=== PATIENT | female | born 1950 | race Caucasian/White ===

== ENCOUNTER 2024-07-23 03:02 | Outpatient (CLI) | payer MEDICARE, SELFPAY ==
--- NOTE | 2024-07-23 | DI.CT_ITS ---
Exam(s) CT CHEST W EXAM: CT CHEST W CLINICAL HISTORY: RECTAL CA,C20,STAGING EXAM. TECHNIQUE: Multi planar reconstructions were performed. CONTRAST MATERIAL: Omnipaque 350; 75 cc COMPARISON: No prior exams were available for comparison FINDINGS: CHEST: LUNGS: There are few small benign calcified granulomas in the right lung as well as a few small calci fied lymph nodes in the right hilum. There are no ominous lung nodules to suggest metastatic disease . There are mild benign-appearing subpleural markings in the left lower lobe posterior basal segment , without confluent infiltrates and no evidence of pleural effusions. There are no focal findings in the trachea and mainstem bronchi. There is no bronchiectasis. MEDIASTINUM: There is no hilar nor mediastinal adenopathy. CARDIAC: Heart size is normal. There is no pericardial effusion.Caliber of the thoracic aorta is wit hin normal limits. VISUALIZED UPPER ABDOMEN:There are no significant adrenal masses. Spleen size normal. Gallbladder s urgically absent. Subtle area of hypodensity in the right hepatic lobe is noted measuring 1.2 x 1.0 cm. This does not have the appearance of a simple cyst. May represent small hemangioma but requires further imaging to rule out metastatic disease given the history here. OSSEOUS: No significant osseous lesions.No fractures.. IMPRESSION: 1. No significant lung nodules. No pleural effusions nor intrathoracic adenopathy. 2. Incidentally noted is a 12 x 10 mm hypodensity in the liver which requires further investigation g iven the history here. There is a possibly that this may represent a benign hemangioma as opposed to metastatic disease. Can be further investigated with contrast infused MRI of the liver using lázaro iopa protocol sequences for added specificity. RADIATION DOSE DELIVERED: 158.01mGy.cm Total DLP DATA REPOSITORY: All CT scans at this facility are submitted to the National Radiology Data Registry (NRDR) Dose Index Registry (DIR) with the [employer] (A[employer]). RADIATION OPTIMIZATION: All CT scans at this facility use at least one of these dose optimization te chniques: automated exposure control; mA and/or kV adjustment per patient size (includes targeted exa ms where dose is matched to clinical indication); or iterative reconstruction.
[2024-07-23] MEDS: Omnipaque 350 MG/ML 100 ML BTL 70 ML IJ (14:26)
[2024-07-23] MEDS: Normal Saline - Diluent 50 ML VIAL IJ (14:27)
== END 2024-07-23 03:22 ==
LOC: DI 03:02
PROVIDERS: Visit Provider Internal Medicine Medical Oncology
DX: C20 Malignant neoplasm of rectum (principal)
CPT/HCPCS: 71260; J3490

== ENCOUNTER 2024-08-06 04:48 | Outpatient (CLI) | payer MEDICARE, SELFPAY ==
[2024-08-06 12:41] LABS: Abs Immature Grans 0.04 10^3/uL (0.0-0.06); Absolute Basophil Count 0.03 10^3/uL (0.0-0.2); Absolute Eosinophil Count 0.08 10^3/uL (0.0-0.7); Absolute Lymphocyte Count 1.18 10^3/uL (1.2-3.4); Absolute Monocyte Count 0.67 10^3/uL (0.1-0.8); Absolute Neutrophil Count 8.59 10^3/uL (1.2-6.7); Basophils % 0.3 %; Eosinophils % 0.8 %; HCT 35.4 % (36.0-46.0); HGB 11.1 g/dL (11.2-15.7); Immature Grans % 0.4 %; Lymphocytes % 11.1 %; MCH 29.1 pg (27.0-33.0); MCHC 31.4 % (32.0-36.0); MCV 93 fL (80-95); MPV 8.6 fL (8.0-11.0); Monocytes % 6.3 %; Neutrophils % 81.1 %; Platelet Count 239 10^3/uL (130-400); RBC 3.82 10^6/uL (3.93-5.22); RDW 12.9 % (11.7-14.6); RDW-SD 44.2 fL; WBC 10.59 10^3/uL (4.4-10.8)
[2024-08-06 12:55] LABS: ALT 18 U/L (14-59); AST 17 U/L (15-37); Albumin 3.2 g/dL (3.4-5.0); Alkaline Phosphatase 131 U/L (46-116); Anion Gap 7.4 mmol/L (3-11); BUN 8 mg/dL (7-18); Bilirubin, Total 0.78 mg/dL (0.2-1.0); CO2 27.6 mmol/L (21.0-32.0); CREATININE 0.7 mg/dL (0.55-1.02); Calcium 9.1 mg/dL (8.5-10.1); Chloride 107 mmol/L (98-107); Glucose 102 mg/dL (74-106); Potassium 3.8 mmol/L (3.5-5.1); Sodium 142 mmol/L (136-145); Total Protein 7.1 g/dL (6.4-8.2)
== END 2024-08-06 04:49 | disposition home or self-care (01) ==
LOC: LBO 04:48
PROVIDERS: Visit Provider Nurse Practitioner Family
DX: C20 Malignant neoplasm of rectum (principal)
CPT/HCPCS: 36415; 80053; 85025

== ENCOUNTER 2024-08-13 02:21 | Outpatient (CLI) | payer MEDICARE, SELFPAY ==
[2024-08-13 10:01] LABS: Abs Immature Grans 0.05 10^3/uL (0.0-0.06); Absolute Basophil Count 0.03 10^3/uL (0.0-0.2); Absolute Eosinophil Count 0.19 10^3/uL (0.0-0.7); Absolute Lymphocyte Count 0.69 10^3/uL (1.2-3.4); Absolute Monocyte Count 0.36 10^3/uL (0.1-0.8); Absolute Neutrophil Count 4.87 10^3/uL (1.2-6.7); Basophils % 0.5 %; Eosinophils % 3.1 %; HCT 32.8 % (36.0-46.0); HGB 10.6 g/dL (11.2-15.7); Immature Grans % 0.8 %; Lymphocytes % 11.1 %; MCH 29.7 pg (27.0-33.0); MCHC 32.3 % (32.0-36.0); MCV 92 fL (80-95); MPV 8.5 fL (8.0-11.0); Monocytes % 5.8 %; Neutrophils % 78.7 %; Platelet Count 241 10^3/uL (130-400); RBC 3.57 10^6/uL (3.93-5.22); RDW 13.1 % (11.7-14.6); RDW-SD 43.6 fL; WBC 6.19 10^3/uL (4.4-10.8)
[2024-08-13 10:21] LABS: ALT 21 U/L (14-59); AST 17 U/L (15-37); Albumin 3.3 g/dL (3.4-5.0); Alkaline Phosphatase 125 U/L (46-116); BUN 22 mg/dL (7-18); Bilirubin, Total 0.73 mg/dL (0.2-1.0); CREATININE 1.2 mg/dL (0.55-1.02); Chloride 107 mmol/L (98-107); Glucose 96 mg/dL (74-106); Potassium 4.3 mmol/L (3.5-5.1); Sodium 142 mmol/L (136-145); Total Protein 6.7 g/dL (6.4-8.2)
== END 2024-08-13 02:22 | disposition home or self-care (01) ==
PROVIDERS: Visit Provider Nurse Practitioner Family
DX: C20 Malignant neoplasm of rectum (principal)
CPT/HCPCS: 36415; 80053; 85025

== ENCOUNTER 2024-08-20 03:23 | Outpatient (CLI) | payer MEDICARE, SELFPAY ==
[2024-08-20 14:46] LABS: Abs Immature Grans 0.03 10^3/uL (0.0-0.06); Absolute Basophil Count 0.01 10^3/uL (0.0-0.2); Absolute Eosinophil Count 0.54 10^3/uL (0.0-0.7); Absolute Lymphocyte Count 0.64 10^3/uL (1.2-3.4); Absolute Monocyte Count 0.37 10^3/uL (0.1-0.8); Absolute Neutrophil Count 4.93 10^3/uL (1.2-6.7); Basophils % 0.2 %; Eosinophils % 8.3 %; HCT 31.6 % (36.0-46.0); HGB 10.4 g/dL (11.2-15.7); Immature Grans % 0.5 %; Lymphocytes % 9.8 %; MCH 30.4 pg (27.0-33.0); MCHC 32.9 % (32.0-36.0); MCV 92 fL (80-95); Monocytes % 5.7 %; Neutrophils % 75.5 %; Platelet Count 207 10^3/uL (130-400); RBC 3.42 10^6/uL (3.93-5.22); RDW 13.6 % (11.7-14.6); RDW-SD 43.6 fL; WBC 6.52 10^3/uL (4.4-10.8)
[2024-08-20 14:51] LABS: ALT 23 U/L (14-59); AST 19 U/L (15-37); Albumin 3.3 g/dL (3.4-5.0); Alkaline Phosphatase 134 U/L (46-116); Anion Gap 6.7 mmol/L (3-11); BUN 16 mg/dL (7-18); Bilirubin, Total 0.65 mg/dL (0.2-1.0); CO2 29.3 mmol/L (21.0-32.0); CREATININE 0.6 mg/dL (0.55-1.02); Calcium 9.4 mg/dL (8.5-10.1); Chloride 106 mmol/L (98-107); Estimated GFR 94.13 (mL/min/1.73m2); Glucose 105 mg/dL (74-106); Potassium 3.9 mmol/L (3.5-5.1); Sodium 142 mmol/L (136-145); Total Protein 6.8 g/dL (6.4-8.2)
== END 2024-08-20 03:24 | disposition home or self-care (01) ==
LOC: LBO 03:23
PROVIDERS: Visit Provider Nurse Practitioner Family
DX: C20 Malignant neoplasm of rectum (principal)
CPT/HCPCS: 36415; 80053; 85025

== ENCOUNTER 2024-08-27 03:32 | Outpatient (CLI) | payer MEDICARE, SELFPAY ==
[2024-08-27 10:21] LABS: Bilirubin Negative (Negative); Blood Trace-lysed (Negative); Clarity Clear (Clear); Glucose Negative (Negative); Ketones Negative (Negative); Leukocyte Esterase Moderate (Negative); Nitrite Negative (Negative); Specific Gravity <= 1.005 (1.005-1.025); Urobilinogen 0.2 mg/dL (Up to 0.2); pH 5.5 (5-8)
[2024-08-27 10:28] LABS: Bacteria Negative HPF (Negative); C & S Indicated? No; Casts Negative LPF (Negative); Crystals Negative HPF (Negative); Epithelial Cells Rare HPF (Negative); Mucus Negative (Negative); RBC 0-2 HPF (0-2)
[2024-08-27 10:31] LABS: Iron 109 ug/dL (50-170); Total Iron Binding Capacity 305 ug/dL (250-450); Transferrin Sat 36 % (15-50)
[2024-08-27 10:42] LABS: Ferritin 291 ng/mL (8-252)
[2024-08-28 12:34] LABS: ALT 26 U/L (14-59); AST 23 U/L (15-37); Albumin 3.4 g/dL (3.4-5.0); Alkaline Phosphatase 135 U/L (46-116); BUN 18 mg/dL (7-18); CO2 25.4 mmol/L (21.0-32.0); CREATININE 0.6 mg/dL (0.55-1.02); Chloride 107 mmol/L (98-107); Estimated GFR 94.13 (mL/min/1.73m2); Glucose 102 mg/dL (74-106); Potassium 4.1 mmol/L (3.5-5.1); Sodium 142 mmol/L (136-145); Total Protein 6.4 g/dL (6.4-8.2)
[2024-08-29 09:26] LABS: Misc Referral (UVM) See Comments
== END 2024-08-27 03:33 | disposition home or self-care (01) ==
PROVIDERS: Nurse Practitioner Family; Visit Provider Nurse Practitioner Adult Health
DX: C20 Malignant neoplasm of rectum (principal)
CPT/HCPCS: 36415; 82947; 84520; 81003; 81015; 82040; 82247; 82310; 82374; 82435; 82565; 82728; 83540; 83550; 84075; 84132; 84155; 84295; 84450; 84460

== ENCOUNTER 2024-08-29 00:50 | Outpatient (CLI) | payer MEDICARE, SELFPAY ==
[2024-08-29 09:48] LABS: Abs Immature Grans 0.03 10^3/uL (0.0-0.06); Absolute Basophil Count 0.02 10^3/uL (0.0-0.2); Absolute Eosinophil Count 0.72 10^3/uL (0.0-0.7); Absolute Lymphocyte Count 0.35 10^3/uL (1.2-3.4); Absolute Monocyte Count 0.49 10^3/uL (0.1-0.8); Basophils % 0.4 %; Eosinophils % 12.8 %; HCT 31.8 % (36.0-46.0); HGB 10.3 g/dL (11.2-15.7); Immature Grans % 0.5 %; Lymphocytes % 6.2 %; MCH 30.4 pg (27.0-33.0); MCHC 32.4 % (32.0-36.0); MCV 94 fL (80-95); MPV 8.7 fL (8.0-11.0); Monocytes % 8.7 %; Neutrophils % 71.4 %; Platelet Count 142 10^3/uL (130-400); RBC 3.39 10^6/uL (3.93-5.22); RDW 15.6 % (11.7-14.6); RDW-SD 45.1 fL; WBC 5.61 10^3/uL (4.4-10.8)
== END 2024-08-29 00:51 | disposition home or self-care (01) ==
LOC: LBO 00:51
PROVIDERS: Visit Provider Nurse Practitioner Family
DX: C20 Malignant neoplasm of rectum (principal)
CPT/HCPCS: 36415; 85025

== ENCOUNTER 2024-09-03 04:38 | Outpatient (CLI) | payer MEDICARE, SELFPAY ==
[2024-09-03 10:06] LABS: Abs Immature Grans 0.02 10^3/uL (0.0-0.06); Absolute Basophil Count 0.02 10^3/uL (0.0-0.2); Absolute Lymphocyte Count 0.24 10^3/uL (1.2-3.4); Absolute Monocyte Count 0.51 10^3/uL (0.1-0.8); Absolute Neutrophil Count 4.98 10^3/uL (1.2-6.7); Basophils % 0.3 %; Eosinophils % 3.4 %; HCT 29.3 % (36.0-46.0); HGB 9.7 g/dL (11.2-15.7); Immature Grans % 0.3 %; MCH 30.9 pg (27.0-33.0); MCHC 33.1 % (32.0-36.0); MCV 93 fL (80-95); MPV 8.8 fL (8.0-11.0); Monocytes % 8.5 %; Neutrophils % 83.5 %; Platelet Count 142 10^3/uL (130-400); RBC 3.14 10^6/uL (3.93-5.22); RDW 16.9 % (11.7-14.6); RDW-SD 45.8 fL; WBC 5.97 10^3/uL (4.4-10.8)
[2024-09-03 14:56] LABS: ALT 31 U/L (14-59); AST 24 U/L (15-37); Albumin 3.2 g/dL (3.4-5.0); Alkaline Phosphatase 119 U/L (46-116); Anion Gap 7.3 mmol/L (3-11); BUN 12 mg/dL (7-18); CO2 27.7 mmol/L (21.0-32.0); CREATININE 0.7 mg/dL (0.55-1.02); Calcium 8.9 mg/dL (8.5-10.1); Chloride 103 mmol/L (98-107); Glucose 113 mg/dL (74-106); Potassium 3.5 mmol/L (3.5-5.1); Sodium 138 mmol/L (136-145); Total Protein 6.5 g/dL (6.4-8.2)
== END 2024-09-03 04:39 | disposition home or self-care (01) ==
LOC: LBO 04:38
PROVIDERS: Visit Provider Nurse Practitioner Family
DX: C20 Malignant neoplasm of rectum (principal)
CPT/HCPCS: 36415; 80053; 85025

== ENCOUNTER 2024-09-10 03:37 | Outpatient (CLI) | payer MEDICARE, SELFPAY ==
[2024-09-10 10:08] LABS: Abs Immature Grans 0.04 10^3/uL (0.0-0.06); Absolute Basophil Count 0.02 10^3/uL (0.0-0.2); Absolute Eosinophil Count 0.01 10^3/uL (0.0-0.7); Absolute Lymphocyte Count 0.17 10^3/uL (1.2-3.4); Absolute Neutrophil Count 6.44 10^3/uL (1.2-6.7); Basophils % 0.3 %; Eosinophils % 0.1 %; HCT 27.8 % (36.0-46.0); HGB 9.2 g/dL (11.2-15.7); Immature Grans % 0.5 %; Lymphocytes % 2.2 %; MCHC 33.1 % (32.0-36.0); MCV 94 fL (80-95); Neutrophils % 83.9 %; Platelet Count 205 10^3/uL (130-400); RBC 2.97 10^6/uL (3.93-5.22); RDW 19.1 % (11.7-14.6); RDW-SD 60.8 fL; WBC 7.68 10^3/uL (4.4-10.8)
[2024-09-10 10:52] LABS: ALT 56 U/L (14-59); AST 26 U/L (15-37); Albumin 2.7 g/dL (3.4-5.0); Alkaline Phosphatase 102 U/L (46-116); BUN 14 mg/dL (7-18); Bilirubin, Total 0.8 mg/dL (0.2-1.0); CREATININE 0.8 mg/dL (0.55-1.02); Calcium 8.9 mg/dL (8.5-10.1); Chloride 103 mmol/L (98-107); Estimated GFR 77.27 (mL/min/1.73m2); Glucose 100 mg/dL (74-106); Potassium 3.2 mmol/L (3.5-5.1); Sodium 140 mmol/L (136-145); Total Protein 5.8 g/dL (6.4-8.2)
== END 2024-09-10 03:38 | disposition home or self-care (01) ==
LOC: LBO 03:37
PROVIDERS: Visit Provider Nurse Practitioner Family
DX: C20 Malignant neoplasm of rectum (principal)
CPT/HCPCS: 36415; 80053; 85025

== ENCOUNTER 2024-09-18 02:44 | Outpatient (CLI) | payer MEDICARE, SELFPAY ==
[2024-09-18 10:28] LABS: Abs Immature Grans 0.03 10^3/uL (0.0-0.06); Absolute Basophil Count 0.01 10^3/uL (0.0-0.2); Absolute Eosinophil Count 0.08 10^3/uL (0.0-0.7); Absolute Lymphocyte Count 0.32 10^3/uL (1.2-3.4); Absolute Neutrophil Count 5.06 10^3/uL (1.2-6.7); Basophils % 0.2 %; Eosinophils % 1.3 %; HCT 28.5 % (36.0-46.0); HGB 9.2 g/dL (11.2-15.7); Immature Grans % 0.5 %; Lymphocytes % 5.2 %; MCH 30.5 pg (27.0-33.0); MCHC 32.3 % (32.0-36.0); MCV 94 fL (80-95); MPV 8.3 fL (8.0-11.0); Monocytes % 9.8 %; Platelet Count 174 10^3/uL (130-400); RBC 3.02 10^6/uL (3.93-5.22); RDW 19.2 % (11.7-14.6); RDW-SD 63.9 fL
[2024-09-18 10:43] LABS: ALT 27 U/L (14-59); AST 15 U/L (15-37); Albumin 2.3 g/dL (3.4-5.0); Alkaline Phosphatase 99 U/L (46-116); Anion Gap 5.7 mmol/L (3-11); BUN 12 mg/dL (7-18); Bilirubin, Total 0.6 mg/dL (0.2-1.0); CO2 29.3 mmol/L (21.0-32.0); CREATININE 0.6 mg/dL (0.55-1.02); Calcium 8.3 mg/dL (8.5-10.1); Chloride 106 mmol/L (98-107); Estimated GFR 94.13 (mL/min/1.73m2); Glucose 103 mg/dL (74-106); Sodium 141 mmol/L (136-145); Total Protein 5.5 g/dL (6.4-8.2)
[2024-09-18 10:47] LABS: Potassium 2.7 mmol/L (3.5-5.1)
== END 2024-09-18 02:45 | disposition home or self-care (01) ==
PROVIDERS: Visit Provider Nurse Practitioner Family
DX: C20 Malignant neoplasm of rectum (principal)
CPT/HCPCS: 36415; 80053; 85025

== ENCOUNTER 2024-10-07 03:28 | Outpatient (RCR) | payer MEDICARE, SELFPAY ==
[2024-10-02 10:08] LABS: Abs Immature Grans 0.02 10^3/uL (0.0-0.06); Absolute Basophil Count 0.02 10^3/uL (0.0-0.2); Absolute Eosinophil Count 0.07 10^3/uL (0.0-0.7); Absolute Lymphocyte Count 0.56 10^3/uL (1.2-3.4); Absolute Monocyte Count 0.45 10^3/uL (0.1-0.8); Absolute Neutrophil Count 4.87 10^3/uL (1.2-6.7); Basophils % 0.3 %; Eosinophils % 1.2 %; HCT 29.7 % (36.0-46.0); HGB 9.5 g/dL (11.2-15.7); Immature Grans % 0.3 %; Lymphocytes % 9.3 %; MCH 30.4 pg (27.0-33.0); MCV 95 fL (80-95); MPV 9.1 fL (8.0-11.0); Monocytes % 7.5 %; Neutrophils % 81.4 %; Platelet Count 269 10^3/uL (130-400); RBC 3.12 10^6/uL (3.93-5.22); RDW 19.4 % (11.7-14.6); RDW-SD 67.7 fL; WBC 5.99 10^3/uL (4.4-10.8)
[2024-10-02 10:25] LABS: ALT 19 U/L (14-59); AST 14 U/L (15-37); Albumin 2.9 g/dL (3.4-5.0); Alkaline Phosphatase 116 U/L (46-116); Anion Gap 5.8 mmol/L (3-11); BUN 12 mg/dL (7-18); Bilirubin, Total 0.6 mg/dL (0.2-1.0); CO2 28.2 mmol/L (21.0-32.0); CREATININE 0.7 mg/dL (0.55-1.02); Calcium 8.9 mg/dL (8.5-10.1); Chloride 108 mmol/L (98-107); Glucose 117 mg/dL (74-106); Potassium 4.2 mmol/L (3.5-5.1); Sodium 142 mmol/L (136-145); Total Protein 6.4 g/dL (6.4-8.2)
[2024-10-02] MEDS: Normal Saline Flush 10 ML SYR IVP (11:10)
[2024-10-02 18:39] LABS: CEA 1.4 ng/mL (See Note)
[2024-10-07] MEDS: Normal Saline Flush 10 ML SYR IVP (09:45)
[2024-10-07 09:47] LABS: Abs Immature Grans 0.02 10^3/uL (0.0-0.06); Absolute Basophil Count 0.03 10^3/uL (0.0-0.2); Absolute Eosinophil Count 0.09 10^3/uL (0.0-0.7); Absolute Lymphocyte Count 0.64 10^3/uL (1.2-3.4); Absolute Monocyte Count 0.43 10^3/uL (0.1-0.8); Absolute Neutrophil Count 4.87 10^3/uL (1.2-6.7); Basophils % 0.5 %; Eosinophils % 1.5 %; HCT 30.6 % (36.0-46.0); HGB 9.6 g/dL (11.2-15.7); Immature Grans % 0.3 %; Lymphocytes % 10.5 %; MCH 30.2 pg (27.0-33.0); MCHC 31.4 % (32.0-36.0); MCV 96 fL (80-95); MPV 8.8 fL (8.0-11.0); Monocytes % 7.1 %; Neutrophils % 80.1 %; Platelet Count 203 10^3/uL (130-400); RBC 3.18 10^6/uL (3.93-5.22); RDW 18.9 % (11.7-14.6); RDW-SD 66.6 fL; WBC 6.08 10^3/uL (4.4-10.8)
[2024-10-07 10:51] LABS: ALT 20 U/L (14-59); AST 14 U/L (15-37); Albumin 2.9 g/dL (3.4-5.0); Alkaline Phosphatase 109 U/L (46-116); Anion Gap 8.3 mmol/L (3-11); BUN 14 mg/dL (7-18); Bilirubin, Total 0.6 mg/dL (0.2-1.0); CO2 25.7 mmol/L (21.0-32.0); CREATININE 0.5 mg/dL (0.55-1.02); Chloride 110 mmol/L (98-107); Estimated GFR 98.36 (mL/min/1.73m2); Glucose 109 mg/dL (74-106); Potassium 4.1 mmol/L (3.5-5.1); Sodium 144 mmol/L (136-145); Total Protein 6.4 g/dL (6.4-8.2); Vitamin B12 386 pg/mL (193-986)
[2024-10-07 10:52] LABS: Folate > 20.0 ng/mL (8.6-20.0)
== END 2024-10-22 23:59 | disposition home or self-care (01) ==
LOC: INF 03:28
PROVIDERS: Nurse Practitioner Family; Visit Provider Internal Medicine Hematology & Oncology
DX: C20 Malignant neoplasm of rectum (principal); D64.9 Anemia, unspecified
CPT/HCPCS: 36591; 80053; 82378; 82607; 82746; 85025

== ENCOUNTER 2024-10-23 10:47 | Outpatient (CLI) | payer MEDICARE, SELFPAY ==
--- NOTE | 2024-10-23 | DI.US_ITS ---
Exam(s) US EXTREMITY VENOUS BI EXAM: US EXTREMITY VENOUS BI CLINICAL HISTORY: R60.0 Bilateral leg edema, LE Swelling,LT greater than RT, Evaluate for DVT. TECHNIQUE: Bilateral lower extremity venous ultrasound performed using grayscale, color-flow, and sp ectral Doppler analysis. COMPARISON: No exams were available for comparison FINDINGS: The right common femoral, proximal femoral and mid femoral vein demonstrate normal compressibility, a ugmentation, and color Doppler. There is noncompressible thrombus seen extending from the distal righ t femoral vein into the popliteal vein and the posterior tibialis veins. The saphenofemoral junction is unremarkable. There is no evidence of a Purvis's cyst. The soft tissues are unremarkable. The left common femoral, femoral and popliteal veins demonstrate normal compressibility, augmentation , and color Doppler. The posterior tibial and peroneal veins are patent. The saphenofemoral junction is unremarkable. There is no evidence of a Purvis's cyst. The soft tissues are unremarkable. IMPRESSION: 1. Findings of a right lower extremity DVT extending from the distal right femoral vein into the post erior tibialis veins. 2. No evidence of a left lower extremity DVT. DATA REPOSITORY:
== END 2024-10-23 11:07 ==
LOC: DI 10:47
PROVIDERS: Visit Provider Internal Medicine Hematology & Oncology
DX: R60.0 Localized edema (principal); I82.411 Acute embolism and thrombosis of right femoral vein
CPT/HCPCS: 36591; 80053; 82378; 85025; 93970

== ENCOUNTER 2024-11-22 00:48 | Outpatient (RCR) | payer MEDICARE, SELFPAY ==
[2024-10-23] MEDS: Normal Saline Flush 10 ML SYR IVP (09:08)
[2024-10-23 09:54] LABS: Abs Immature Grans 0.01 10^3/uL (0.0-0.06); Absolute Basophil Count 0.02 10^3/uL (0.0-0.2); Absolute Eosinophil Count 0.09 10^3/uL (0.0-0.7); Absolute Lymphocyte Count 0.52 10^3/uL (1.2-3.4); Absolute Monocyte Count 0.39 10^3/uL (0.1-0.8); Absolute Neutrophil Count 2.07 10^3/uL (1.2-6.7); Basophils % 0.6 %; Eosinophils % 2.9 %; HCT 27.8 % (36.0-46.0); HGB 8.8 g/dL (11.2-15.7); Immature Grans % 0.3 %; Lymphocytes % 16.8 %; MCH 30.1 pg (27.0-33.0); MCHC 31.7 % (32.0-36.0); MCV 95 fL (80-95); MPV 9.7 fL (8.0-11.0); Monocytes % 12.6 %; Neutrophils % 66.8 %; Platelet Count 167 10^3/uL (130-400); RBC 2.92 10^6/uL (3.93-5.22); RDW 18.7 % (11.7-14.6); RDW-SD 65.1 fL
[2024-10-23 10:33] LABS: ALT 27 U/L (14-59); AST 23 U/L (15-37); Albumin 2.9 g/dL (3.4-5.0); Alkaline Phosphatase 107 U/L (46-116); BUN 10 mg/dL (7-18); Bilirubin, Total 0.8 mg/dL (0.2-1.0); CREATININE 0.5 mg/dL (0.55-1.02); Calcium 8.5 mg/dL (8.5-10.1); Chloride 110 mmol/L (98-107); Estimated GFR 98.36 (mL/min/1.73m2); Glucose 94 mg/dL (74-106); Sodium 144 mmol/L (136-145)
[2024-10-23 19:25] LABS: CEA 0.9 ng/mL (See Note)
[2024-10-25 11:36] VITALS: BP 126/70; PULSE 85; RESP 16; TEMP 36.5; O2SAT 100
[2024-11-06] MEDS: Normal Saline Flush 10 ML SYR IVP (10:56)
[2024-11-06 11:02] LABS: Abs Immature Grans 0.01 10^3/uL (0.0-0.06); Absolute Basophil Count 0.01 10^3/uL (0.0-0.2); Absolute Eosinophil Count 0.04 10^3/uL (0.0-0.7); Absolute Lymphocyte Count 0.48 10^3/uL (1.2-3.4); Absolute Monocyte Count 0.36 10^3/uL (0.1-0.8); Absolute Neutrophil Count 2.73 10^3/uL (1.2-6.7); Basophils % 0.3 %; Eosinophils % 1.1 %; HCT 28.2 % (36.0-46.0); HGB 8.8 g/dL (11.2-15.7); Immature Grans % 0.3 %; Lymphocytes % 13.2 %; MCH 29.7 pg (27.0-33.0); MCHC 31.2 % (32.0-36.0); MCV 95 fL (80-95); Monocytes % 9.9 %; Neutrophils % 75.2 %; Platelet Count 117 10^3/uL (130-400); RBC 2.96 10^6/uL (3.93-5.22); RDW 18.1 % (11.7-14.6); RDW-SD 62.6 fL; WBC 3.63 10^3/uL (4.4-10.8)
[2024-11-06 11:18] LABS: ALT 27 U/L (14-59); AST 22 U/L (15-37); Albumin 2.9 g/dL (3.4-5.0); Alkaline Phosphatase 119 U/L (46-116); Anion Gap 4.3 mmol/L (3-11); BUN 13 mg/dL (7-18); Bilirubin, Total 0.7 mg/dL (0.2-1.0); CO2 28.7 mmol/L (21.0-32.0); CREATININE 0.5 mg/dL (0.55-1.02); Calcium 8.5 mg/dL (8.5-10.1); Chloride 109 mmol/L (98-107); Estimated GFR 98.36 (mL/min/1.73m2); Glucose 109 mg/dL (74-106); Potassium 3.5 mmol/L (3.5-5.1); Sodium 142 mmol/L (136-145); Total Protein 6.2 g/dL (6.4-8.2)
[2024-11-06 19:17] LABS: CEA 1.1 ng/mL (See Note)
[2024-11-20 08:48] LABS: Absolute Basophil Count 0.01 10^3/uL (0.0-0.2); Absolute Eosinophil Count 0.03 10^3/uL (0.0-0.7); Absolute Lymphocyte Count 0.46 10^3/uL (1.2-3.4); Absolute Monocyte Count 0.35 10^3/uL (0.1-0.8); Basophils % 0.4 %; Eosinophils % 1.2 %; HCT 28.1 % (36.0-46.0); MCH 30.5 pg (27.0-33.0); MCV 95 fL (80-95); MPV 9.8 fL (8.0-11.0); Monocytes % 13.7 %; Neutrophils % 66.7 %; Platelet Count 108 10^3/uL (130-400); RBC 2.95 10^6/uL (3.93-5.22); RDW 17.8 % (11.7-14.6); RDW-SD 62.1 fL; WBC 2.55 10^3/uL (4.4-10.8)
[2024-11-20] MEDS: Normal Saline Flush 10 ML SYR IVP (08:56)
[2024-11-20 09:05] LABS: ALT 63 U/L (14-59); AST 41 U/L (15-37); Albumin 2.9 g/dL (3.4-5.0); Alkaline Phosphatase 122 U/L (46-116); BUN 13 mg/dL (7-18); Bilirubin, Total 0.7 mg/dL (0.2-1.0); CREATININE 0.4 mg/dL (0.55-1.02); Calcium 8.6 mg/dL (8.5-10.1); Chloride 107 mmol/L (98-107); Estimated GFR 103.79 (mL/min/1.73m2); Glucose 104 mg/dL (74-106); Potassium 3.6 mmol/L (3.5-5.1); Sodium 142 mmol/L (136-145); Total Protein 6.2 g/dL (6.4-8.2)
[2024-11-20 18:36] LABS: CEA 1.1 ng/mL (See Note)
[2024-11-22 11:18] VITALS: BP 120/75; PULSE 85; RESP 16; TEMP 36.5; O2SAT 100
== END 2024-11-22 23:59 | disposition home or self-care (01) ==
LOC: INF 00:48
PROVIDERS: Nurse Practitioner Family; PCP Nurse Practitioner Family; Visit Provider Internal Medicine Hematology & Oncology
DX: C20 Malignant neoplasm of rectum (principal); Z45.2 Encounter for adjustment and management of vascular access device
CPT/HCPCS: 36591; 80053; 96523; 82378; 85025

== ENCOUNTER 2024-12-20 00:04 | Outpatient (RCR) | payer MEDICARE, SELFPAY ==
[2024-12-04 11:09] LABS: Abs Immature Grans 0.01 10^3/uL (0.0-0.06); Absolute Basophil Count 0.01 10^3/uL (0.0-0.2); Absolute Eosinophil Count 0.05 10^3/uL (0.0-0.7); Absolute Lymphocyte Count 0.42 10^3/uL (1.2-3.4); Absolute Monocyte Count 0.37 10^3/uL (0.1-0.8); Absolute Neutrophil Count 1.52 10^3/uL (1.2-6.7); Basophils % 0.4 %; Eosinophils % 2.1 %; HCT 28.4 % (36.0-46.0); HGB 8.8 g/dL (11.2-15.7); Immature Grans % 0.4 %; Lymphocytes % 17.6 %; MCV 97 fL (80-95); MPV 10.5 fL (8.0-11.0); Monocytes % 15.5 %; Platelet Count 101 10^3/uL (130-400); RBC 2.93 10^6/uL (3.93-5.22); RDW 17.7 % (11.7-14.6); RDW-SD 62.3 fL; WBC 2.38 10^3/uL (4.4-10.8)
[2024-12-04 11:39] LABS: ALT 75 U/L (14-59); AST 41 U/L (15-37); Albumin 2.9 g/dL (3.4-5.0); Alkaline Phosphatase 145 U/L (46-116); Anion Gap 5.9 mmol/L (3-11); BUN 12 mg/dL (7-18); Bilirubin, Total 0.6 mg/dL (0.2-1.0); CO2 28.1 mmol/L (21.0-32.0); CREATININE 0.5 mg/dL (0.55-1.02); Calcium 8.6 mg/dL (8.5-10.1); Chloride 109 mmol/L (98-107); Estimated GFR 98.36 (mL/min/1.73m2); Glucose 95 mg/dL (74-106); Potassium 3.6 mmol/L (3.5-5.1); Sodium 143 mmol/L (136-145); Total Protein 6.1 g/dL (6.4-8.2)
[2024-12-04] MEDS: Normal Saline Flush 10 ML SYR IVP (13:21)
[2024-12-04 19:21] LABS: CEA 1.2 ng/mL (See Note)
[2024-12-06 13:04] VITALS: BP 131/61; PULSE 72; RESP 15; TEMP 36.7; O2SAT 98
[2024-12-06] MEDS: Normal Saline Flush 10 ML SYR IVP (13:06)
[2024-12-18] MEDS: Normal Saline Flush 10 ML SYR IVP (09:29)
[2024-12-18 09:46] LABS: Abs Immature Grans 0.01 10^3/uL (0.0-0.06); Absolute Basophil Count 0.02 10^3/uL (0.0-0.2); Absolute Lymphocyte Count 0.45 10^3/uL (1.2-3.4); Absolute Monocyte Count 0.46 10^3/uL (0.1-0.8); Absolute Neutrophil Count 1.65 10^3/uL (1.2-6.7); Basophils % 0.7 %; Eosinophils % 7.2 %; HCT 27.1 % (36.0-46.0); HGB 8.6 g/dL (11.2-15.7); Immature Grans % 0.4 %; Lymphocytes % 16.1 %; MCH 30.6 pg (27.0-33.0); MCHC 31.7 % (32.0-36.0); MCV 96 fL (80-95); Monocytes % 16.5 %; Neutrophils % 59.1 %; RBC 2.81 10^6/uL (3.93-5.22); RDW 17.7 % (11.7-14.6); RDW-SD 62.4 fL; WBC 2.79 10^3/uL (4.4-10.8)
[2024-12-18 10:03] LABS: ALT 44 U/L (14-59); AST 33 U/L (15-37); Albumin 2.9 g/dL (3.4-5.0); Alkaline Phosphatase 154 U/L (46-116); Anion Gap 5.4 mmol/L (3-11); BUN 11 mg/dL (7-18); Bilirubin, Total 0.6 mg/dL (0.2-1.0); CO2 28.6 mmol/L (21.0-32.0); CREATININE 0.5 mg/dL (0.55-1.02); Calcium 8.7 mg/dL (8.5-10.1); Chloride 108 mmol/L (98-107); Estimated GFR 98.36 (mL/min/1.73m2); Glucose 97 mg/dL (74-106); Potassium 3.4 mmol/L (3.5-5.1); Sodium 142 mmol/L (136-145); Total Protein 6.1 g/dL (6.4-8.2)
[2024-12-18 10:09] LABS: Platelet Count 99 10^3/uL (130-400)
[2024-12-18 10:10] LABS: RBC Morphology Normal
[2024-12-18 18:21] LABS: CEA 1.1 ng/mL (See Note)
[2024-12-20] MEDS: Normal Saline Flush 10 ML SYR IVP (11:54)
== END 2024-12-22 23:59 | disposition home or self-care (01) ==
LOC: INF 00:04
PROVIDERS: Nurse Practitioner Family; PCP Nurse Practitioner Family; Visit Provider Internal Medicine Hematology & Oncology
DX: C20 Malignant neoplasm of rectum (principal); Z45.2 Encounter for adjustment and management of vascular access device
CPT/HCPCS: 36591; 80053; 96523; 82378; 85025

== ENCOUNTER 2025-01-22 02:19 | Outpatient (RCR) | payer MEDICARE, SELFPAY ==
[2025-01-01 11:05] LABS: Abs Immature Grans 0.00 10^3/uL (0.0-0.06); HCT 27.1 % (36.0-46.0); HGB 8.7 g/dL (11.2-15.7); Immature Grans % 0.0 %; MCH 30.6 pg (27.0-33.0); MCHC 32.1 % (32.0-36.0); MCV 95 fL (80-95); MPV 10.4 fL (8.0-11.0); RBC 2.84 10^6/uL (3.93-5.22); RDW 18.1 % (11.7-14.6); RDW-SD 63.3 fL; WBC 2.60 10^3/uL (4.4-10.8)
[2025-01-01] MEDS: Normal Saline Flush 10 ML SYR IVP (11:07)
[2025-01-01 11:31] LABS: Platelet Count 81 10^3/uL (130-400); RBC Morphology Normal
[2025-01-01 11:42] LABS: ALT 63 U/L (14-59); AST 49 U/L (15-37); Albumin 2.8 g/dL (3.4-5.0); Alkaline Phosphatase 165 U/L (46-116); Anion Gap 6.4 mmol/L (3-11); BUN 11 mg/dL (7-18); Bilirubin, Total 0.6 mg/dL (0.2-1.0); CO2 26.6 mmol/L (21.0-32.0); Calcium 8.5 mg/dL (8.5-10.1); Chloride 108 mmol/L (98-107); Estimated GFR 103.79 (mL/min/1.73m2); Glucose 110 mg/dL (74-106); Potassium 3.6 mmol/L (3.5-5.1); Sodium 141 mmol/L (136-145); Total Protein 6.1 g/dL (6.4-8.2)
[2025-01-01 18:43] LABS: CEA 1.6 ng/mL (See Note)
[2025-01-08 10:46] LABS: Abs Immature Grans 0.02 10^3/uL (0.0-0.06); HCT 27.9 % (36.0-46.0); HGB 8.8 g/dL (11.2-15.7); Immature Grans % 0.7 %; MCH 31.0 pg (27.0-33.0); MCHC 31.5 % (32.0-36.0); MCV 98 fL (80-95); MPV 10.6 fL (8.0-11.0); RBC 2.84 10^6/uL (3.93-5.22); RDW 19.0 % (11.7-14.6); RDW-SD 69.0 fL; WBC 2.97 10^3/uL (4.4-10.8)
[2025-01-08] MEDS: Normal Saline Flush 10 ML SYR IVP (10:52)
[2025-01-08 10:56] LABS: ALT 44 U/L (14-59); AST 38 U/L (15-37); Albumin 2.9 g/dL (3.4-5.0); Alkaline Phosphatase 171 U/L (46-116); Anion Gap 6.2 mmol/L (3-11); BUN 10 mg/dL (7-18); Bilirubin, Total 0.7 mg/dL (0.2-1.0); CO2 29.8 mmol/L (21.0-32.0); Calcium 8.9 mg/dL (8.5-10.1); Chloride 108 mmol/L (98-107); Estimated GFR 103.79 (mL/min/1.73m2); Glucose 95 mg/dL (74-106); Potassium 3.8 mmol/L (3.5-5.1); Sodium 144 mmol/L (136-145); Total Protein 6.1 g/dL (6.4-8.2)
[2025-01-08 11:02] LABS: Platelet Count 90 10^3/uL (130-400); RBC Morphology Normal
[2025-01-08 19:14] LABS: CEA 1.7 ng/mL (See Note)
[2025-01-10 13:07] VITALS: BP 145/71; PULSE 71; RESP 18; TEMP 36.8; O2SAT 97
[2025-01-10] MEDS: Normal Saline Flush 10 ML SYR IVP (13:17)
[2025-01-22 12:24] LABS: Abs Immature Grans 0.01 10^3/uL (0.0-0.06); HCT 27.4 % (36.0-46.0); HGB 8.7 g/dL (11.2-15.7); Immature Grans % 0.4 %; MCH 31.2 pg (27.0-33.0); MCHC 31.8 % (32.0-36.0); MCV 98 fL (80-95); MPV 10.4 fL (8.0-11.0); RBC 2.79 10^6/uL (3.93-5.22); RDW 18.0 % (11.7-14.6); RDW-SD 64.1 fL; WBC 2.73 10^3/uL (4.4-10.8)
[2025-01-22 12:42] LABS: Anisocytosis 2+; Platelet Count 91 10^3/uL (130-400)
[2025-01-22 12:44] LABS: ALT 43 U/L (14-59); AST 45 U/L (15-37); Albumin 2.9 g/dL (3.4-5.0); Alkaline Phosphatase 165 U/L (46-116); Anion Gap 4.5 mmol/L (3-11); BUN 13 mg/dL (7-18); Bilirubin, Total 0.6 mg/dL (0.2-1.0); CO2 28.5 mmol/L (21.0-32.0); Calcium 8.7 mg/dL (8.5-10.1); Chloride 110 mmol/L (98-107); Estimated GFR 103.79 (mL/min/1.73m2); Glucose 96 mg/dL (74-106); Potassium 4.0 mmol/L (3.5-5.1); Sodium 143 mmol/L (136-145); Total Protein 6.1 g/dL (6.4-8.2)
[2025-01-22] MEDS: Normal Saline Flush 10 ML SYR IVP (12:51)
[2025-01-22 22:56] LABS: CEA 1.5 ng/mL (See Note)
== END 2025-01-22 23:59 | disposition home or self-care (01) ==
LOC: INF 02:19
PROVIDERS: Nurse Practitioner Family; PCP Nurse Practitioner Family; Visit Provider Internal Medicine Hematology & Oncology
DX: C20 Malignant neoplasm of rectum (principal); Z45.2 Encounter for adjustment and management of vascular access device
CPT/HCPCS: 36591; 80053; 96523; 82378; 85025

== ENCOUNTER 2025-02-16 03:28 | Outpatient (CLI) | payer MEDICARE, SELFPAY ==
--- NOTE | 2025-02-16 | DI.CT_ITS ---
Exam(s) CT CHEST/ABD/PEL W EXAM: CT CHEST/ABD/PEL W CLINICAL HISTORY: Rectal carcinoma, C20; completion of total neoadjuvant therapy, restaging TECHNIQUE: Imaging Protocol: Axial computed tomography images with coronal and sagittal reformatted images were created and reviewed. Lung Computer Aided Detection (CAD) was utilized. CONTRAST MATERIAL: Intravenous: Omnipaque 350 contrast volume:100 mL Oral: Yes COMPARISON: CT CT CHEST W from 07/23/2024 FINDINGS: CHEST: Tracheobronchial tree: Patent where visualized. No evidence of bronchiectasis. Pulmonary parenchyma: No consolidation or dominant measurable mass. There is a calcified granuloma in the right lower lobe. There is dependent atelectasis present. No focal consolidating infiltrates are present. Visualized thyroid gland: Unremarkable. Mediastinum and Rebecca: No dominant adenopathy or fluid collection. The esophagus is unremarkable. Pleura: No effusion or pneumothorax. Heart: The heart is not dilated. Mild coronary artery calcification is present. No pericardial effusion. Pulmonary arteries: No pulmonary emboli are identified. Aorta: Thoracic aorta non-dilated. There is no evidence of a dissection. Atherosclerotic calcification is present. Lymph nodes: Within normal limits. Tubes, Catheters, and Lines: There is a right port in place. Soft tissues: Unremarkable. Bones:Within normal limits for the patient's age. ABDOMEN: Liver: Normal density. There is again seen a hypodense mass in the posterior segment of the right lobe of the liver. It measures 1.5 cm. It does show some enhancement peripherally. (Series 22, image 35). Portal, Superior Mesenteric, and Splenic Veins: Unremarkable. Gallbladder and Biliary Tract: Status post cholecystectomy. There is no significant biliary ductal dilatation. Pancreas: Normal density, no abnormal calcifications or inflammatory process. Spleen: Normal. Adrenals: No masses seen. Kidneys: Normal size, contour and axis. No radiodense stones or obstructive uropathy. There are bilateral simple renal cysts. No follow-up is recommended. Abdominal Aorta: Abdominal portion non-dilated. Atherosclerotic calcification is seen. There is a 0.9 cm splenic artery aneurysm. Bowel: There is diverticulosis of the colon without evidence of acute diverticulitis. The appendix is not visualized. No inflammatory process is seen in the right lower quadrant. There is an area of wall thickening along the anterior and right aspect of the rectum (series 22, image 166). It contacts the posterior aspect of the vagina. There is infiltration of the presacral fat without discrete mass. Peritoneal Cavity: No ascites, collection or mesenteric inflammatory response. No free air. Lymph Nodes: Within normal limits. Bones: Within normal limits for the patient's age. There are no aggressive osseous lesions. Soft Tissues: Unremarkable. PELVIS: Bladder: There is mild diffuse thickening of the wall of the urinary bladder. The urinary bladder is underdistended which may account for this finding. An infectious or inflammatory process cannot be excluded. Reproductive Organs: The right ovary measures 3.8 x 2.6 cm. Nonemergent pelvic ultrasound may be considered for further evaluation. Lymph Nodes: Within normal limits. Bones: Within normal limits. IMPRESSION: 1. Focal thickening of the anterior and right aspect of the rectum which is in contact with the adjacent vagina. Renal neoplasm should be considered. There are no priors for comparison at this time. If there are priors, they may be submitted and an addendum will be issued. 2. 1.5 cm mass in the right lobe of the liver. It is incompletely characterized on this examination. An MRI without and with contrast is recommended for further evaluation. Differential considerations include metastasis/neoplasm or benign hepatic mass such is hemangioma. 3. 0.9 cm splenic artery aneurysm. 4. Mild diffuse thickening of the wall of the urinary bladder. This may be due to underdistention, but infectious/inflammatory process cannot be excluded. 5. There is no evidence of thoracic metastatic disease. Unexpected findings RADIATION DOSE DELIVERED: 537.2mGy.cm Total DLP DATA REPOSITORY: All CT scans at this facility are submitted to the National Radiology Data Registry (NRDR) Dose Index Registry (DIR) with the [employer] (ACR). RADIATION OPTIMIZATION: All CT scans at this facility use at least one of these dose optimization techniques: automated exposure control; mA and/or kV adjustment per patient size (includes targeted exams where dose is matched to clinical indication); or iterative reconstruction.
[2025-02-16] MEDS: Barium Sulfate 2% W/V-Creamy Vanilla Smoothie 450 ML BTL PO (09:38)
[2025-02-16] MEDS: Barium Sulfate 2% W/V-Berry Smoothie 450 ML BTL PO (09:38)
[2025-02-16] MEDS: Omnipaque 350 MG/ML 500 ML BTL-Imaging package IJ (13:02)
[2025-02-16] MEDS: Normal Saline Flush 10 ML SYR IVP (13:03)
[2025-02-16] MEDS: Normal Saline - Diluent 50 ML VIAL IJ (13:03)
== END 2025-02-16 03:48 ==
LOC: DI 03:28
PROVIDERS: PCP Nurse Practitioner Family; Visit Provider Nurse Practitioner Family
DX: C20 Malignant neoplasm of rectum (principal); R93.2 Abnormal findings on diagnostic imaging of liver and biliary tract
CPT/HCPCS: 36591; 74177; 80053; 71260; 82378; 85025

== ENCOUNTER 2025-02-16 03:36 | Outpatient (RCR) | payer MEDICARE, SELFPAY ==
[2025-01-24 14:47] VITALS: BP 125/65; PULSE 82; RESP 18; TEMP 36.6; O2SAT 97
[2025-01-24] MEDS: Normal Saline Flush 10 ML SYR IVP (14:49)
[2025-02-16 09:59] LABS: Abs Immature Grans 0.01 10^3/uL (0.0-0.06); HCT 29.3 % (36.0-46.0); HGB 9.5 g/dL (11.2-15.7); Immature Grans % 0.3 %; MCH 33.2 pg (27.0-33.0); MCHC 32.4 % (32.0-36.0); MCV 102 fL (80-95); MPV 11.3 fL (8.0-11.0); Platelet Count 101 10^3/uL (130-400); RBC 2.86 10^6/uL (3.93-5.22); RDW 18.1 % (11.7-14.6); RDW-SD 67.7 fL; WBC 3.20 10^3/uL (4.4-10.8)
[2025-02-16 10:15] LABS: ALT 37 U/L (14-59); AST 43 U/L (15-37); Albumin 3.1 g/dL (3.4-5.0); Alkaline Phosphatase 193 U/L (46-116); Anion Gap 7.7 mmol/L (3-11); BUN 11 mg/dL (7-18); Bilirubin, Total 1.2 mg/dL (0.2-1.0); CO2 26.3 mmol/L (21.0-32.0); Calcium 9.1 mg/dL (8.5-10.1); Chloride 109 mmol/L (98-107); Estimated GFR 98.36 (mL/min/1.73m2); Glucose 94 mg/dL (74-106); Potassium 4.2 mmol/L (3.5-5.1); Sodium 143 mmol/L (136-145); Total Protein 6.6 g/dL (6.4-8.2)
[2025-02-16] MEDS: Normal Saline Flush 10 ML SYR IVP (10:26)
[2025-02-16 18:08] LABS: CEA 1.3 ng/mL (See Note)
== END 2025-02-22 23:59 | disposition home or self-care (01) ==
LOC: INF 03:36
PROVIDERS: Nurse Practitioner Family; PCP Nurse Practitioner Family; Visit Provider Internal Medicine Hematology & Oncology
DX: C20 Malignant neoplasm of rectum (principal); Z45.2 Encounter for adjustment and management of vascular access device
CPT/HCPCS: 36591; 80053; 96523; 82378; 85025

== ENCOUNTER 2025-03-16 07:13 | Outpatient (CLI) | payer MEDICARE, SELFPAY ==
--- NOTE | 2025-03-16 15:23 | DI.MAMMO_ITS ---
Exam(s) MAMMO SCREENING EXAM: MAMMO SCREENING CLINICAL HISTORY: screening,z12.39 TECHNIQUE: Mammograms were interpreted according to the usual protocol including computer analysis with CAD system, tomosynthesis and C-view imaging. COMPARISON: 2020 through 2023 FINDINGS: The breasts are composed of mainly fatty density , Breast Density category A. No suspicious masses or suspicious microcalcifications are seen. No skin thickening or abnormal axillary lymph nodes are seen. There has been no significant change from prior exams. A port has been placed over the right pectoral muscle. IMPRESSION: BI-RADS Category 1, Negative mammogram Yearly screening mammography is recommended. Breast Density- Category A - The breast are almost entirely fatty. Breast density Category C or D implies that the patient has dense breast tissue. Dense breast tissue can make it harder to find cancer on a mammogram. Dense breast tissue is also associated with an increased risk of breast cancer. This information about the result of the mammogram report was provided to the patient to raise their awareness. Use this report when you speak with the patient about their risks for breast cancer, which includes their family history. At that time, you may recommend additional screening tests (Ultrasound or MRI) as these tests may add significant information. A negative radiographic report should not delay biopsy if a dominant or clinically suspicious mass is present. Up to ten percent of cancers are not identified on mammography. A negative report may reinforce clinical impression. Adenosis and dense breasts may obscure an underlying neoplasm. False positive reports average 6 to 10%. Patient will receive a letter notifying them of these results.
== END 2025-03-16 07:33 ==
LOC: DI 07:14
PROVIDERS: PCP Nurse Practitioner Family; Visit Provider Nurse Practitioner Family
DX: Z12.31 Encounter for screening mammogram for malignant neoplasm of breast (principal)
CPT/HCPCS: 77063; 77067

== ENCOUNTER 2025-05-28 01:16 | Outpatient (RCR) | payer MEDICARE, SELFPAY ==
[2025-05-28] MEDS: Normal Saline Flush 10 ML SYR IVP (10:25)
[2025-05-28 10:36] LABS: Abs Immature Grans 0.01 10^3/uL (0.0-0.06); HCT 29.6 % (36.0-46.0); HGB 9.4 g/dL (11.2-15.7); Immature Grans % 0.3 %; MCH 30.7 pg (27.0-33.0); MCHC 31.8 % (32.0-36.0); MCV 97 fL (80-95); MPV 9.3 fL (8.0-11.0); Platelet Count 137 10^3/uL (130-400); RBC 3.06 10^6/uL (3.93-5.22); RDW 13.7 % (11.7-14.6); RDW-SD 48.5 fL; WBC 3.83 10^3/uL (4.4-10.8)
[2025-05-28 11:19] LABS: ALT 22 U/L (10-49); AST 32 U/L (<34); Albumin 3.9 g/dL (3.2-5.0); Alkaline Phosphatase 143 U/L (46-116); Anion Gap 6.7 mmol/L (3-11); BUN 17 mg/dL (9-23); Bilirubin, Total 0.90 mg/dL (0.2-1.2); CO2 28.3 mmol/L (20.0-31.0); Calcium 8.9 mg/dL (8.3-10.6); Chloride 107 mmol/L (98-107); Glucose 93 mg/dL (74-106); Potassium 4.3 mmol/L (3.5-5.1); Sodium 142 mmol/L (136-145); Total Protein 6.5 g/dL (5.7-8.2)
[2025-05-28 14:33] LABS: Iron 62 ug/dL (50-170); Total Iron Binding Capacity 319 ug/dL (250-425); Transferrin Sat 19 % (15-50)
[2025-05-28 14:37] LABS: Ferritin 83 ng/mL (7-271)
[2025-05-28 18:14] LABS: CEA 0.6 ng/mL (See Note)
== END 2025-06-24 23:59 | disposition home or self-care (01) ==
LOC: INF 01:16
PROVIDERS: Nurse Practitioner Family; PCP Nurse Practitioner Family; Visit Provider Internal Medicine Hematology & Oncology
DX: C20 Malignant neoplasm of rectum (principal); D64.9 Anemia, unspecified; Z45.2 Encounter for adjustment and management of vascular access device
CPT/HCPCS: 36591; 80053; 82378; 82728; 83540; 83550; 85025